=== PATIENT | female | born 1975 | race Caucasian/White ===

== ENCOUNTER 2020-12-12 16:18 | Emergency (ER) | payer OTHER ==
[~2020-12-12 16:18] MED LIST: ADMELOG SO100 UNIT/1 SC; BASAGLAR K100 UNIT/1 SC; BENTYL10 MG PO; BREO ELLIPTA 11 EACH INH; CARAFATE S500 MG/TSP PO; DIFLUCAN150 MG PO; HYDROCODON-ACE1 EAC4 PO; HYDROXYZINE PAM25 MG PO; LEXAPRO20 MG PO; NEURONTIN300 MG PO; NORCO 5-325 TA1 EACH PO; ONDANSETRON ODT4 MG PO; PRINIVIL10 MG PO; PROTONIX 40MG T40 MG PO; SUCRALFATE1 GM PO; TRAZODONE HCL50 MG PO; VENTOLIN HFA IN18 GM INH; ZOFRAN4 MG SL; ZOFRAN8 MG PO
[2020-12-12 19:08] LABS: BILIRUBIN NEGATIVE (NEGATIVE); BLOOD 3+ Ery/uL (NEGATIVE); CLARITY CLEAR (CLEAR); COLOR YELLOW (YELLOW); GLUCOSE (U) 2+ mg/dL (NORMAL); LEUKOCYTES NEGATIVE Leu/uL (NEGATIVE); NITRITE NEGATIVE (NEGATIVE); PROTEIN 3+ mg/dL (NEGATIVE); SPECIFIC GRAVITY >=1.030 (1.001-1.030); UROBILINOGEN 0.2 mg/dL (0.2-1.0)
[2020-12-12 19:09] LABS: BASOPHIL 0.9 % (0-2); EOSINOPHIL 6.6 % (0-5); HCT 47.4 % (37.0-47.0); LYMPHOCYTE 29.7 % (15-48); MCH 31.1 pg (25.0-31.0); MCHC 33.8 g/dL (32.0-36.0); MCV 92.2 fL (78.0-100.0); MONOCYTE 6.3 % (0-12); MPV 11.1 fL (6.0-9.5); NRBC 0; PLT 272 K/uL (150-400); RBC 5.14 M/uL (4.20-5.40); RDW 12.9 % (11.5-14.0); WBC 10.6 K/uL (4.0-10.5)
[2020-12-12 19:13] LABS: BACTERIA TRACE; YEAST PRESENT
[2020-12-12 19:21] LABS: BILIRUBIN - TOTAL 0.2 mg/dL (0.2-1.0); BUN/CREAT RATIO (CALC) 16.9 RATIO; CREATININE 0.77 mg/dL (0.51-0.95); POTASSIUM 4.2 mmol/L (3.5-5.1)
== END 2020-12-12 20:41 | disposition home or self-care (01) ==
LOC: FER 16:18
PROVIDERS: Nurse Practitioner Family
DX: M26.602 Left temporomandibular joint disorder, unspecified (principal); R51.9 Headache, unspecified; E11.65 Type 2 diabetes mellitus with hyperglycemia; B37.49 Other urogenital candidiasis; M54.2 Cervicalgia; I10 Essential (primary) hypertension; J45.909 Unspecified asthma, uncomplicated; F17.210 Nicotine dependence, cigarettes, uncomplicated; Z86.14 Personal history of Methicillin resistant Staphylococcus aureus infection; Z88.0 Allergy status to penicillin
CPT/HCPCS: 36415; 70450; 72125; 80053; 81001; 85025; J1100; J1885

== ENCOUNTER 2021-04-21 19:46 | Emergency (ER) | payer OTHER ==
[2021-04-22 00:26] LABS: EOSINOPHIL 3.5 % (0-5); HCT 47.5 % (37.0-47.0); HGB 15.8 g/dl (12.5-16.0); LYMPHOCYTE 31.9 % (15-48); MCH 30.3 pg (25.0-31.0); MCHC 33.3 g/dL (32.0-36.0); MONOCYTE 4.9 % (0-12); MPV 11.9 fL (6.0-9.5); NEUTROPHIL 58.4 % (41-80); NRBC 0; PLT 211 K/uL (150-400); RBC 5.22 M/uL (4.20-5.40); RDW 12.7 % (11.5-14.0); WBC 11.5 K/uL (4.0-10.5)
[2021-04-22 00:37] LABS: ALBUMIN 2.9 g/dL (3.4-5.0); BILIRUBIN - TOTAL 0.1 mg/dL (0.2-1.0); BUN/CREAT RATIO (CALC) 15.9 RATIO; CREATININE 0.63 mg/dL (0.51-0.95); GLOBULIN (CALCULATION) 3.2 g/dL; POTASSIUM 4.7 mmol/L (3.5-5.1); TOTAL PROTEIN 6.1 g/dL (6.4-8.2)
[2021-04-22 00:49] LABS: BILIRUBIN NEGATIVE (NEGATIVE); BLOOD 1+ Ery/uL (NEGATIVE); CLARITY CLEAR (CLEAR); COLOR YELLOW (YELLOW); GLUCOSE (U) 3+ mg/dL (NORMAL); LEUKOCYTES NEGATIVE Leu/uL (NEGATIVE); NITRITE NEGATIVE (NEGATIVE); PROTEIN 3+ mg/dL (NEGATIVE); SPECIFIC GRAVITY 1.025 (1.001-1.030); UROBILINOGEN 0.2 mg/dL (0.2-1.0)
[2021-04-22 00:58] LABS: BACTERIA 1+; YEAST PRESENT
[2021-04-22 02:54] LABS: LACTIC ACID 0.6 mmol/L (0.4-1.9)
[2021-04-22] MEDS ORDERED: IBUPROFEN800 MG PO (03:47)
[2021-04-22] MEDS ORDERED: FLOMAX0.4 MG PO (03:47)
[2021-04-22] MEDS ORDERED: NORCO 5-325 TA1 EACH PO (03:47)
== END 2021-04-22 04:07 | disposition home or self-care (01) ==
LOC: FER 19:46
PROVIDERS: Emergency Medicine Emergency Medical Services
DX: R10.9 Unspecified abdominal pain (principal); E11.9 Type 2 diabetes mellitus without complications; E27.8 Other specified disorders of adrenal gland; N28.89 Other specified disorders of kidney and ureter; N83.202 Unspecified ovarian cyst, left side; F17.210 Nicotine dependence, cigarettes, uncomplicated; I10 Essential (primary) hypertension; Z98.890 Other specified postprocedural states; Z90.49 Acquired absence of other specified parts of digestive tract; Z87.19 Personal history of other diseases of the digestive system; Z88.0 Allergy status to penicillin; Z79.899 Other long term (current) drug therapy
CPT/HCPCS: 36415; 80053; 81001; 82150; 83605; 83690; 84145; 85025; J1170; J1885; J2550; J7030; Q9967

== ENCOUNTER 2021-08-20 19:19 | Emergency (ER) | payer OTHER ==
[~2021-08-20 19:19] MED LIST changes: +FLOMAX0.4 MG PO; +IBUPROFEN800 MG PO
[2021-08-21 02:12] LABS: BASOPHIL 0.8 % (0-2); EOSINOPHIL 3.5 % (0-5); HGB 15.4 g/dl (12.5-16.0); LYMPHOCYTE 36.1 % (15-48); MCH 30.2 pg (25.0-31.0); MCHC 32.8 g/dL (32.0-36.0); MCV 92.2 fL (78.0-100.0); MONOCYTE 6.7 % (0-12); MPV 11.6 fL (6.0-9.5); NEUTROPHIL 52.5 % (41-80); NRBC 0; PLT 211 K/uL (150-400); RDW 13.2 % (11.5-14.0)
[2021-08-21 02:18] LABS: WBC 13.6 K/uL (4.0-10.5)
[2021-08-21 02:23] LABS: ALBUMIN 2.9 g/dL (3.4-5.0); BILIRUBIN - TOTAL 0.3 mg/dL (0.2-1.0); BUN/CREAT RATIO (CALC) 26.2 RATIO; CREATININE 0.8 mg/dL (0.51-0.95); GLOBULIN (CALCULATION) 3.1 g/dL; POTASSIUM 4.2 mmol/L (3.5-5.1)
== END 2021-08-21 05:31 | disposition home or self-care (01) ==
LOC: FER 19:19
PROVIDERS: Emergency Medicine
DX: I10 Essential (primary) hypertension (principal); N63.0 Unspecified lump in unspecified breast; E11.9 Type 2 diabetes mellitus without complications; F17.200 Nicotine dependence, unspecified, uncomplicated
CPT/HCPCS: 36415; 80053; 84484; 85025; 93005; 99284

== ENCOUNTER 2021-10-03 09:33 | Emergency (ER) | payer OTHER | END 2021-10-03 14:06 | disposition home or self-care (01) | LOC: FER 09:33 | DX: U07.1 COVID-19 (principal); F17.200 Nicotine dependence, unspecified, uncomplicated; Z88.0 Allergy status to penicillin | CPT/HCPCS: 99283; J1885 ==

== ENCOUNTER 2022-04-10 13:30 | Emergency (ER) | payer OTHER ==
[2022-04-10 14:11] LABS: BASOPHIL 0.7 % (0-2); EOSINOPHIL 2.3 % (0-5); HCT 48.3 % (37.0-47.0); MCH 29.6 pg (25.0-31.0); MCHC 33.1 g/dL (32.0-36.0); MCV 89.3 fL (78.0-100.0); MONOCYTE 5.8 % (0-12); MPV 10.9 fL (6.0-9.5); NEUTROPHIL 67.9 % (41-80); NRBC 0; PLT 258 K/uL (150-400); RBC 5.41 M/uL (4.20-5.40); RDW 13.2 % (11.5-14.0); WBC 12.4 K/uL (4.0-10.5)
[2022-04-10 14:36] LABS: ALBUMIN 3.1 g/dL (3.4-5.0); BILIRUBIN - TOTAL 0.3 mg/dL (0.2-1.0); BUN/CREAT RATIO (CALC) 24.5 RATIO; CREATININE 1.02 mg/dL (0.51-0.95); GLOBULIN (CALCULATION) 3.9 g/dL; POTASSIUM 4.2 mmol/L (3.5-5.1)
[2022-04-10 16:23] LABS: BILIRUBIN NEGATIVE (NEGATIVE); BLOOD 1+ Ery/uL (NEGATIVE); CLARITY CLEAR (CLEAR); COLOR YELLOW (YELLOW); GLUCOSE (U) 3+ mg/dL (NORMAL); LEUKOCYTES NEGATIVE Leu/uL (NEGATIVE); NITRITE NEGATIVE (NEGATIVE); PROTEIN 2+ mg/dL (NEGATIVE); UROBILINOGEN 0.2 mg/dL (0.2-1.0); pH 5.5 (5.0-9.0)
[2022-04-10 16:30] LABS: AMORPHOUS URATES CRYSTALS MODERATE; BACTERIA 1+
[2022-04-10] MEDS ORDERED: ONDANSETRON ODT4 MG PO (16:34)
[2022-04-10] MEDS ORDERED: VICODIN 10/3251 EACH PO (16:41)
== END 2022-04-10 16:55 | disposition home or self-care (01) ==
LOC: FER 13:30
PROVIDERS: Physician Assistant
DX: K85.90 Acute pancreatitis without necrosis or infection, unspecified (principal); E11.9 Type 2 diabetes mellitus without complications; I10 Essential (primary) hypertension; F17.210 Nicotine dependence, cigarettes, uncomplicated; Z79.4 Long term (current) use of insulin; Z86.73 Personal history of transient ischemic attack (TIA), and cerebral infarction without residual deficits; Z88.0 Allergy status to penicillin
CPT/HCPCS: 36415; 80053; 81001; 83605; 83690; 85025; J1170; J2270; J2405; J7030